=== PATIENT | male | born 2000 | race Caucasian/White ===

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

== ENCOUNTER 2023-05-08 19:41 | Emergency (ER) | payer SELFPAY ==
[2023-05-08] MEDS: Diphtheria,Pertussis(Acell),Tetanus Vaccine 0.5 ML Syringe IM ONE (21:09)
[2023-05-08] MEDS: Acetaminophen 325 MG Tab PO ONE (21:11)
[2023-05-08 21:51] VITALS: BP 112/68; PULSE 79
== END 2023-05-08 21:50 | disposition home or self-care (01) ==
LOC: MW.ED 19:41
DX: S00.83XA Contusion of other part of head, initial encounter (principal); Z88.0 Allergy status to penicillin; X50.1XXA Overexertion from prolonged static or awkward postures, initial encounter; Z23 Encounter for immunization
CPT/HCPCS: 70486; 90471; 90715; 99284; A9270; 99283